=== PATIENT | male | born 1970 | race Caucasian/White ===

== ENCOUNTER 2024-07-05 15:19 | Emergency (ER) | payer OTHER ==
[~2024-07-05] VITALS: Ht 193 cm; Wt 122.0 kg
[2024-07-05 16:02] VITALS: O2SAT 99
[2024-07-05 16:51] LABS: CARBON DIOXIDE 30 mEq/L (21-32); CHLORIDE 108 mEq/L (98-107); HEMATOCRIT. 44.4 % (42.0-52.0); MEAN CORPUSCULAR HEMOGLOBIN 30.6 pg (28.0-32.0); MEAN CORPUSCULAR HGB CONC 33.9 g/dL (31.0-37.0); MEAN CORPUSCULAR VOLUME 90.2 fL (80.0-94.0); MEAN PLATELET VOLUME 8.9 fl (7.4-10.4); PLATELET 251 x1000/uL (130-400); POTASSIUM 3.7 mEq/L (3.5-5.1); RED BLOOD CELL COUNT 4.92 mill/uL (4.7-6.1); RED CELL DISTRIBUTION WIDTH 14.1 % (11.6-14.6); SODIUM 147 mEq/L (136-145); WHITE BLOOD COUNT 10.4 x1000/uL (4.5-11.0)
[2024-07-05 16:52] LABS: CALCIUM 9.6 mg/dL (8.7-10.4); DIFFERENTIAL COMMENT 1
[2024-07-05 16:56] LABS: CREATININE 1.2 mg/dL (0.6-1.3)
[2024-07-05 16:57] LABS: GLUCOSE 100 mg/dL (70-105); UREA NITROGEN BLOOD 14 mg/dL (9-23)
[2024-07-05 16:58] LABS: ALANINE AMINOTRANSFERASE 72 IU/L (10-49); ALBUMIN 4.3 g/dL (3.2-4.8); ASPARTATE AMINOTRANSFERASE 29 IU/L (<34)
[2024-07-05 16:59] LABS: BILIRUBIN DIRECT 0.2 mg/dL (<=3.0); BILIRUBIN TOTAL 0.6 mg/dL (0.1-1.0); PROTEIN TOTAL 6.9 g/dL (6.0-8.3)
[2024-07-05 18:16] LABS: PLATELET ESTIMATE NORMAL
[2024-07-05] MEDS: LOPERAMIDE HCL 2MG CAPSULE PO ONE (19:42)
[2024-07-05] MEDS ORDERED: LOPE2CAP MT (20:10)
[2024-07-05] MEDS ORDERED: METR-167 MT (20:10)
[2024-07-05 21:20] VITALS: BP 138/96; PULSE 98; RESP 16; TEMP 37.00296; O2SAT 98
== END 2024-07-05 21:28 | disposition home or self-care (01) ==
LOC: ER 15:19
DX: R19.7 Diarrhea, unspecified (principal); D72.10 Eosinophilia, unspecified
CPT/HCPCS: 36415; 74176; 80048; 80076; 85025; 87015; 87045; 87177; 87209; 87427; 87449; 87493; 99284